=== PATIENT | male | born 1950 | race Caucasian/White ===

== ENCOUNTER → 2023-11-05 07:53 | Outpatient (REF) | payer MEDICARE, OTHER, SELFPAY | LOC: DHVS 07:53 | PROVIDERS: ATTENDING PHYSICIAN Physician Assistant; FAMILY PHYSICIAN Internal Medicine | DX: I73.9 Peripheral vascular disease, unspecified (principal) | CPT/HCPCS: 93922; 93925; 93978 ==

== ENCOUNTER → 2023-12-10 15:16 | Outpatient (REF) | payer MEDICARE, OTHER, SELFPAY | LOC: RAD 15:16 | PROVIDERS: ATTENDING PHYSICIAN Internal Medicine | DX: M79.671 Pain in right foot (principal) | CPT/HCPCS: 36415; 73630 ==

== ENCOUNTER → 2023-12-30 08:11 | Outpatient (REF) | payer MEDICARE, OTHER, SELFPAY | LOC: HWRAD 08:11 | PROVIDERS: ATTENDING PHYSICIAN Hospitalist; REFERRING PHYSICIAN Internal Medicine | DX: Z87.891 Personal history of nicotine dependence (principal) | CPT/HCPCS: 71271 ==

== ENCOUNTER → 2024-01-19 06:33 | Day surgery (SDC) | payer MEDICARE, OTHER, SELFPAY | LOC: GI 06:33 | PROVIDERS: ATTENDING PHYSICIAN Internal Medicine | DX: D12.0 Benign neoplasm of cecum (principal); D12.5 Benign neoplasm of sigmoid colon; K31.811 Angiodysplasia of stomach and duodenum with bleeding; K55.20 Angiodysplasia of colon without hemorrhage; K57.30 Diverticulosis of large intestine without perforation or abscess without bleeding; K64.8 Other hemorrhoids; R19.5 Other fecal abnormalities | CPT/HCPCS: 45385; 45380; 88305 ==

== ENCOUNTER → 2024-04-07 13:41 | Outpatient (REF) | payer MEDICARE, OTHER, SELFPAY | LOC: HWRCS 13:41 | PROVIDERS: ATTENDING PHYSICIAN Nuclear Medicine Nuclear Cardiology; FAMILY PHYSICIAN Internal Medicine | DX: I25.10 Atherosclerotic heart disease of native coronary artery without angina pectoris (principal); I10 Essential (primary) hypertension; I73.9 Peripheral vascular disease, unspecified; Z98.61 Coronary angioplasty status; I25.2 Old myocardial infarction | CPT/HCPCS: 93306 ==

== ENCOUNTER → 2024-04-27 08:28 | Outpatient (REF) | payer MEDICARE, OTHER, SELFPAY | LOC: HWRCS 08:28 | PROVIDERS: ATTENDING PHYSICIAN Nuclear Medicine Nuclear Cardiology; FAMILY PHYSICIAN Internal Medicine | DX: I25.10 Atherosclerotic heart disease of native coronary artery without angina pectoris (principal); I10 Essential (primary) hypertension; I73.9 Peripheral vascular disease, unspecified; Z98.61 Coronary angioplasty status; I25.2 Old myocardial infarction | CPT/HCPCS: 78452; 93017; A9500; J2785 ==

== ENCOUNTER → 2024-05-12 07:46 | Outpatient (REF) | payer MEDICARE, OTHER, SELFPAY | LOC: RAD 07:46 | PROVIDERS: ATTENDING PHYSICIAN Surgery Vascular Surgery; FAMILY PHYSICIAN Hospitalist | DX: I73.9 Peripheral vascular disease, unspecified (principal) | CPT/HCPCS: 93922; 93925; 93978 ==

== ENCOUNTER → 2024-06-23 07:03 | Outpatient (REF) | payer MEDICARE, OTHER, SELFPAY | LOC: RAD 07:03 | PROVIDERS: ATTENDING PHYSICIAN Physician Assistant; FAMILY PHYSICIAN Internal Medicine | DX: I73.9 Peripheral vascular disease, unspecified (principal) | CPT/HCPCS: 75635; Q9967 ==